=== PATIENT | female | born 1980 | race Caucasian/White ===

== ENCOUNTER 2024-06-04 14:42 | Emergency (ER) | payer MEDICAID ==
[~2024-06-04] VITALS: Ht 167.6 cm; Wt 54.4 kg
[2024-06-04 14:45] VITALS: BP 128/81; PULSE 104; RESP 16; TEMP 97.3; O2SAT 97
== END 2024-06-04 16:00 | disposition home or self-care (01) ==
LOC: MED 14:42
DX: Z00.01 Encounter for general adult medical examination with abnormal findings (principal); R47.89 Other speech disturbances
CPT/HCPCS: 82948; 99283